=== PATIENT | female | born 1980 ===

== ENCOUNTER 2017-04-17 13:05 | Emergency (ER) | payer MEDICAID ==
--- NOTE | 2017-04-17 14:00 | ED PDOC ---
HPI: Altered Mental Status Time Seen by Provider: 04/17/17 13:28 Chief Complaint (Nursing): Weakness/Neurological Deficit History/Exam Limitations: None Onset/Duration Of Symptoms: Mins (x20) Associated Symptoms: Other (tingling to the lips and hands) Additional Complaint(s): Jossie Daugherty is a 36 year old female, with a past medical history of anxiety, who presents to the emergency department complaining of anxiety associated with tingling to the lips and hands onset for 20 min. Patient reports she has been decreasing her Xanax dose without consulting her physician and has skipped 2 doses of her xanax in the evening. She states symptoms have worsen in the past couple of days. She also reports history of similar symptoms in the past. She reports history of chronic headaches and has an outapatient neurologist. Patient denies any nausea, vomiting, abdominal pain, chest pain, shortness of breath, fever or chills. PMD: None provided. Past Medical History Reviewed: Historical Data, Nursing Documentation, Vital Signs Vital Signs: Last Vital Signs Temp 98.3 F 04/17/17 13:08 Pulse 91 H 04/17/17 13:08 Resp 20 04/17/17 13:08 BP 128/63 04/17/17 13:08 Pulse Ox 99 04/17/17 13:08 - Medical History PMH: Anxiety - Family History Family History: States: Unknown Family Hx - Allergies Allergies/Adverse Reactions: Allergies Allergy/AdvReac Type Severity Reaction Status Date / Time No Known Allergies Allergy Verified 04/17/17 13:08 Review of Systems ROS Statement: Except As Marked, All Systems Reviewed And Found Negative Constitutional: Negative for: Fever, Chills Cardiovascular: Negative for: Chest Pain, Palpitations, Paroxysmal Noc. Dyspnea , Edema, Light Headedness Respiratory: Negative for: Cough, Shortness of Breath, SOB with Exertion Gastrointestinal: Negative for: Nausea, Vomiting, Abdominal Pain Genitourinary Female: Negative for: Dysuria Psych: Positive for: Anxiety (w/ tingling to her lips and hands). Negative for : Depression, Psychosis, Suicidal ideation, Withdrawal Physical Exam - Reviewed Nursing Documentation Reviewed: Yes Vital Signs Reviewed: Yes - Physical Exam Appears: Positive for: Well, Non-toxic, No Acute Distress Head Exam: Positive for: ATRAUMATIC, NORMAL INSPECTION, NORMOCEPHALIC Skin: Positive for: Normal Color, Warm, Dry Eye Exam: Positive for: EOMI, Normal appearance, PERRL ENT: Positive for: Normal ENT Inspection Neck: Positive for: Normal, Painless ROM, Supple Cardiovascular/Chest: Positive for: Regular Rate, Rhythm. Negative for: Murmur Respiratory: Positive for: Normal Breath Sounds. Negative for: Respiratory Distress Gastrointestinal/Abdominal: Positive for: Normal Exam, Bowel Sounds, Soft. Negative for: Tenderness Back: Positive for: Normal Inspection Extremity: Positive for: Normal ROM Neurologic/Psych: Positive for: Alert, Oriented. Negative for: Motor/Sensory Deficits - Laboratory Results Result Diagrams: 04/17/17 14:00 04/17/17 14:00 - ECG ECG Rhythm: Positive for: Normal QRS, Normal ST Segment, Sinus Rhythm Rate: 83 O2 Sat by Pulse Oximetry: 99 (RA) Pulse Ox Interpretation: Normal Medical Decision Making Medical Decision Making: Initial Impression: 36 y/o female with anxiety. Patient has been self weaning from xanax even though her psychiatrist instructed her not to do this. Symptoms consistent with anxiety attack. Initial Plan: --Comp Metabolic Panel --Magnesium --Phosphorus --CBC w/ differential --Urinalysis --reevaluation Scribe Attestation: Documented by Moises Ospina, acting as a scribe for Latesha Hendrickson MD. Provider Scribe Attestation: All medical record entries made by the Scribe were at my direction and personally dictated by me. I have reviewed the chart and agree that the record accurately reflects my personal performance of the history, physical exam, medical decision making, and the department course for this patient. I have also personally directed, reviewed, and agree with the discharge instructions and disposition. On reevaluation, negative and labs grossly normal. Patient took her home medication and feels better. She was instructed not to self wean xanax and follow-up with neurologist for chronic headaches Disposition - Clinical Impression Clinical Impression: Anxiety - Disposition Disposition: Routine/Home Disposition Time: 14:55 Condition: GOOD Additional Instructions: Follow-up with your neurologist and psychiatrist. Do not discontinue medication without consulting your doctor. Return to ED if condition worsens. Instructions: Anxiety (ED) Forms: [employer] (Macedonian)
[2017-04-17 14:11] LABS: BASO # 0.1 K/uL (0.0-0.2); BASO % 1.3 % (0.0-2.0); EOS # 0.1 K/uL (0.0-0.7); EOS % 1.1 % (0.0-4.0); HEMATOCRIT 42.1 % (34.0-47.0); LYMPH # 2.5 K/uL (1.0-4.3); LYMPH % 27.4 % (20.0-40.0); MEAN CELL VOLUME 98.1 fl (81.0-99.0); MEAN CORPUSCULAR HEMOGLOBIN 31.9 pg (27.0-31.0); MEAN CORPUSCULAR HGB CONC 32.5 g/dL (33.0-37.0); MEAN PLATELET VOLUME 7.7 fl (7.2-11.7); MONO # 0.7 K/uL (0.0-0.8); MONO % 7.9 % (0.0-10.0); NEUT # 5.6 K/uL (1.8-7.0); NEUT % 62.3 % (50.0-75.0); NRBC % 0.1 % (0.0-0.0); RED CELL DISTRIBUTION WIDTH 13.2 % (11.5-14.5)
[2017-04-17 14:22] LABS: ALB/GLOB RATIO 1.5 (1.0-2.1); ALKALINE PHOSPHATASE 74 U/L (38-126); ALT/SGPT 33 U/L (9-52); AST/SGOT 31 U/L (14-36); BILIRUBIN,TOTAL 0.5 mg/dl (0.2-1.3); BLOOD UREA NITROGEN 15 mg/dl (7-17); CALCIUM 9.6 mg/dL (8.4-10.2); CARBON DIOXIDE 26 mmol/L (22-30); CHLORIDE 101 mmol/L (98-107); GFR AFRICAN-AMERICAN > 60; GLUCOSE,RANDOM 103 mg/dL (65-105); MAGNESIUM 2.2 MG/DL (1.6-2.3); PHOSPHOROUS 2.8 mg/dl (2.5-4.5); SODIUM 139 mmol/l (132-148); TOTAL PROTEIN 8.3 G/DL (6.3-8.2)
[2017-04-17 14:41] LABS: POTASSIUM 4.3 MMOL/L (3.6-5.0)
[2017-04-17 15:11] LABS: RBC URINE 1 /hpf (0-3); URINE BACTERIA FEW (<OCC); URINE BILIRUBIN NEGATIVE (NEGATIVE); URINE BLOOD NEGATIVE (NEGATIVE); URINE COLOR YELLOW (YELLOW); URINE GLUCOSE (UA) NEG (Normal); URINE KETONE NEGATIVE (NEGATIVE); URINE LEUKOCYTE ESTERASE NEG Leu/uL (Negative); URINE PROTEIN 30 mg/dL (NEGATIVE); URINE UROBILINOGEN 0.2-1.0 mg/dL (0.2-1.0); WBC URINE 1 /hpf (0-5)
[2017-04-17 15:58] VITALS: BP 128/78; RESP 19; TEMP 97.6
[2017-04-17 16:00] VITALS: PULSE 83; O2SAT 99
== END 2017-04-17 15:59 | disposition home or self-care (01) ==
LOC: H.ER 13:05
DX: F41.9 Anxiety disorder, unspecified (principal)